=== PATIENT | male | born 2005 | race Caucasian/White ===

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

== ENCOUNTER 2024-02-03 15:03 | Emergency (ER) | payer MEDICAID ==
[~2024-02-03] VITALS: Ht 175.3 cm; Wt 75.0 kg
[2024-02-03 15:09] VITALS: O2SAT 98
[2024-02-03 15:43] LABS: CHLORIDE 107 mEq/L (98-107); POTASSIUM 4.4 mEq/L (3.5-5.1); SODIUM 142 mEq/L (136-145)
[2024-02-03 15:44] LABS: BASOPHILS % 0.4 % (0.0-2.0); CALCIUM 10.6 mg/dL (8.7-10.4); CARBON DIOXIDE 24 mEq/L (21-32); EOSINOPHILS % 0.1 % (0.0-5.0); HEMATOCRIT. 46.9 % (42.0-52.0); HEMOGLOBIN. 15.3 g/dL (14.0-18.0); LYMPHOCYTES % 57.2 % (20.0-50.0); MEAN CORPUSCULAR HEMOGLOBIN 31.7 pg (28.0-32.0); MEAN CORPUSCULAR HGB CONC 32.6 g/dL (31.0-37.0); MEAN CORPUSCULAR VOLUME 97.2 fL (80.0-94.0); MEAN PLATELET VOLUME 7.3 fl (7.4-10.4); MONOCYTES % 5.2 % (2.0-8.0); NEUTROPHILS % 37.1 % (40.0-76.0); PLATELET 284 x1000/uL (130-400); RED BLOOD CELL COUNT 4.82 mill/uL (4.7-6.1); RED CELL DISTRIBUTION WIDTH 13.3 % (11.6-14.6); WHITE BLOOD COUNT 6.6 x1000/uL (4.5-11.0)
[2024-02-03] MEDS: SODIUM CHLORIDE 0.9% 1,000 ML IV ONE (15:47)
[2024-02-03] MEDS: KETOROLAC 15MG/ML VIAL IV ONE (15:47)
[2024-02-03 15:49] LABS: GLUCOSE 100 mg/dL (70-105); UREA NITROGEN BLOOD 11 mg/dL (9-23)
[2024-02-03 15:53] LABS: TROPONIN I HIGH SENSITIVITY < 4 ng/L (3.0-53)
[2024-02-03 16:11] LABS: D-DIMER < 0.19 mg/L FEU (<0.50); PARTIAL THROMBOPLASTIN TIME 23.8 sec (23.4-31.0); PROTHROMBIN TIME 11.3 sec (9.6-11.0)
[2024-02-03] MEDS ORDERED: IBUP-2028 MT (17:12)
[2024-02-03 18:00] VITALS: BP 130/78; PULSE 82; RESP 16; TEMP 36.78072; O2SAT 98
== END 2024-02-03 18:03 | disposition home or self-care (01) ==
LOC: ER 15:03
DX: B34.9 Viral infection, unspecified (principal); Z88.1 Allergy status to other antibiotic agents
CPT/HCPCS: 80048; 85025; 85379; 85610; 85730; 84484; 36415; 71045; 93005; 96361; 96374; 99285; J1885; J7030; Z7610

== ENCOUNTER 2024-06-24 23:40 | Emergency (ER) | payer MEDICAID ==
[~2024-06-24 23:40] MED LIST: IBUP-2028 MT
[2024-06-24 23:45] VITALS: PULSE 126; O2SAT 95
== END 2024-06-25 01:47 | disposition left against medical advice (07) ==
LOC: ER 23:40
DX: R10.84 Generalized abdominal pain (principal); R11.10 Vomiting, unspecified; R19.7 Diarrhea, unspecified; Z53.21 Procedure and treatment not carried out due to patient leaving prior to being seen by health care provider